=== PATIENT | male | born 1955 | race Hispanic/Latino ===

== ENCOUNTER → 2021-11-01 | Outpatient (CLI) | payer OTHER ==
[~2021-11-01] MED LIST: AEC81 PO; AMLO2.5T2 PO; ATOR20TA65 PO; CEFU500T67 PO; TADA5TAB13 PO
== END | disposition home or self-care (01) ==
LOC: RAH 10:04
PROVIDERS: ATTEND Urology
DX: N40.0 Benign prostatic hyperplasia without lower urinary tract symptoms (principal); I86.1 Scrotal varices
CPT/HCPCS: 76870